=== PATIENT | female | born 1985 | race Caucasian/White ===

== ENCOUNTER 2019-12-06 14:24 | Emergency (ER) | payer MEDICAID, OTHER ==
[~2019-12-06] VITALS: Ht 162.6 cm; Wt 50.6 kg
--- NOTE | 2019-12-06 14:42 | NUR ---
NIL [id number]
--- NOTE | 2019-12-06 14:57 | NUR ---
URINE COLLECTED/SENT TO LAB.
[2019-12-06 15:07] LABS: BASOPHILS # (AUTO) 0.03 x10^3/uL (0-0.1); BASOPHILS % (AUTO) 0 % (0-1); EOSINOPHILS # (AUTO) 0.04 x10^3/uL (0-0.4); EOSINOPHILS % (AUTO) 1 % (1-7); LYMPHOCYTES # (AUTO) 1.23 x10^3/uL (1-3.4); LYMPHOCYTES % (AUTO) 15 % (22-44); MD NO; MEAN CORPUSCULAR HEMOGLOBIN 30.2 pg (27.0-34.8); MEAN CORPUSCULAR HGB CONC 33.2 g/dL (32.4-35.8); MEAN CORPUSCULAR VOLUME 90.9 fL (80-100); MEAN PLATELET VOLUME 9.6 fL (7.4-10.4); MONOCYTES # (AUTO) 0.51 x10^3/uL (0.2-0.8); MONOCYTES % (AUTO) 6 % (2-9); NEUTROPHILS # (AUTO) 6.43 x10^3/uL (1.8-6.8); NEUTROPHILS % (AUTO) 78 % (42-75); PLATELET COUNT 204 x10^3/uL (130-400); RED BLOOD COUNT 5.38 x10^6/uL (3.82-5.3); RED CELL DISTRIBUTION WIDTH 13.9 % (9.6-15.2)
[2019-12-06 15:14] LABS: ALANINE AMINOTRANSFERASE 29 U/L (12-78); ALBUMIN 4.5 g/dL (3.4-5.0); ANION GAP 8 mmol/L (5-15); CALCIUM 9.2 mg/dL (8.5-10.1); CHLORIDE 109 mmol/L (98-107); CREATININE 0.77 mg/dL (0.55-1.02)
--- NOTE | 2019-12-06 15:16 | NUR ---
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
--- NOTE | 2019-12-06 15:17 | NUR ---
PT BROUGHT BACK FROM LOBBY WITH CHIEF COMPLAINT OF N/V, DIZZY, OSUNA FOR 3 DAYS.
[2019-12-06 15:19] LABS: ALKALINE PHOSPHATASE 106 U/L (45-117); BILIRUBIN,TOTAL 0.6 mg/dL (0.2-1.0)
[2019-12-06] MEDS ORDERED: FLUC150T2 PO (15:29)
[2019-12-06] MEDS ORDERED: ASPI-496 PO (15:29)
[2019-12-06] MEDS ORDERED: LEVO125T5 PO (15:29)
[2019-12-06] MEDS ORDERED: MINO100C61 PO (15:29)
[2019-12-06] MEDS ORDERED: VENL37.57 PO (15:29)
[2019-12-06] MEDS ORDERED: CHOL5POW PO (15:29)
[2019-12-06] MEDS ORDERED: TOPI100T8 PO (15:29)
[2019-12-06 15:30] LABS: MICROSCOPIC INDICATED
[2019-12-06] MEDS ORDERED: ONDANSETRON 2MG/ML, 2ML IVPush ONE (16:30)
[2019-12-06] MEDS ORDERED: SODIUM CHLORIDE FLUSH 10ML SYR IVF ONE (16:30)
[2019-12-06] MEDS ORDERED: SODIUM CHLORIDE 0.9% 1,000ML IVBOLUS ONE (16:30)
--- NOTE | 2019-12-06 16:30 | NUR ---
PT RESTING IN BED, FAMILY AT BEDSIDE.
[2019-12-06] MEDS ORDERED: MORPHINE SULFATE 4 MG/ML, 1ML ONE ×2 (16:40→18:04)
[2019-12-06] MEDS ORDERED: ONDANSETRON 2MG/ML, 2ML ONE (16:40)
[2019-12-06] MEDS: MORPHINE SULFATE 4 MG/ML, 1ML IVPush PRN ×2 (16:52→18:07)
[2019-12-06] MEDS ORDERED: OMNIPAQUE 350 MG/ML, 100ML BOTTLE ONE (17:28)
--- NOTE | 2019-12-06 17:30 | NUR ---
MEDICATED ORDERED. CALL LIGHT IN REACH, FAMILY AT BEDSIDE.
--- NOTE | 2019-12-06 17:53 | NUR ---
Salima santana in [facility] - 12/06/19 at 1805 by VEL Ambulation test attempted, patient cannot sit up with help let alone stand up and ambulate. patient;s bed changed.
[2019-12-06 18:05] VITALS: BP 129/80
--- NOTE | 2019-12-06 18:25 | NUR ---
KATIE ARZOLA AT BEDSIDE
--- NOTE | 2019-12-06 18:47 | NUR ---
REPORT FROM DEIDRE RUCKER ASSUMING CARE OF PT AT THIS TIME
[2019-12-06 19:26] LABS: C-REACTIVE PROTEIN, QUANT < 0.02 mg/dL (0.02-0.49)
== END 2019-12-06 20:25 | disposition home or self-care (01) ==
LOC: ED 15:51
DX: Z03.818 Encounter for observation for suspected exposure to other biological agents ruled out (principal); R11.2 Nausea with vomiting, unspecified; R10.84 Generalized abdominal pain; I87.1 Compression of vein; R94.31 Abnormal electrocardiogram [ECG] [EKG]
CPT/HCPCS: 36415; 74177; 80053; 81001; 82728; 83615; 83690; 84703; 85025; 86140; 93005; 96361; 96374; 96375; 96376; 99285; J2270; J2405; J7030; Q9967; U0001